=== PATIENT | male | born 1970 | race Caucasian/White ===

== ENCOUNTER 2017-11-05 06:29 | Day surgery (SDC) | payer BC ==
[2017-11-05] MEDS ORDERED: GLYCOPYRROLATE 0.4 MG INJ (07:00)
[2017-11-05] MEDS ORDERED: NEOSTIGMINE 3 MG/3 ML SYRINGE (07:00)
[2017-11-05] MEDS ORDERED: ROCURONIUM 50 MG INJ ×2 (07:00→07:41)
[2017-11-05] MEDS ORDERED: PROPOFOL 100 ML (07:37)
[2017-11-05] MEDS ORDERED: LIDOCAINE 2% (SDV) 5 ML INJ (07:41)
[2017-11-05] MEDS ORDERED: LABETALOL HCL 20MG INJ (07:51)
[2017-11-05] MEDS ORDERED: DEXAMETHASONE 4 MG/ML 1 ML INJ (07:52)
[2017-11-05] MEDS ORDERED: ONDANSETRON 4 MG INJ (07:52)
[2017-11-05] MEDS ORDERED: hydrALAzine 20 MG INJ IV (08:00)
[2017-11-05] MEDS ORDERED: LABETALOL HCL 20MG INJ IV (08:00)
[2017-11-05] MEDS ORDERED: FENTAnyl 50 MCG/ML VIAL IV ×2 (08:00)
[2017-11-05] MEDS ORDERED: ALBUTEROL 0.083% (NEB) 2.5 MG/3 ML AMP HHN (08:00)
[2017-11-05] MEDS ORDERED: EPHEDrine SULFATE 50 MG/5 ML SYG IV (08:00)
[2017-11-05] MEDS ORDERED: MIDAZOLAM 1 MG/ML 2 ML INJ IV (08:00)
[2017-11-05] MEDS ORDERED: DIPHENHYDRAMINE 50 MG INJ IV (08:00)
[2017-11-05] MEDS ORDERED: ONDANSETRON 4 MG INJ IV (08:00)
[2017-11-05] MEDS ORDERED: METOCLOPRAMIDE 10 MG INJ IV (08:00)
[2017-11-05] MEDS ORDERED: HYDROmorphONE (0.2 MG/ML) 10ML SYG IV ×3 (08:00)
[2017-11-05] MEDS ORDERED: KETOROLAC 30 MG INJ IV (08:00)
[2017-11-05] MEDS ORDERED: MEPERIDINE 25 MG INJ IV (08:00)
[2017-11-05] MEDS ORDERED: OXYCODONE/ACETAMINOPHEN (5/325) TAB PO (08:00)
[2017-11-05] MEDS: LIDOCAINE 1%/EPI 30 ML INJ (08:20)
[2017-11-05] MEDS: OXYMETAZOLINE 0.05% 15 ML NAS SPRAY NASAL (08:21)
[2017-11-05] MEDS: FENTAnyl 50 MCG/ML VIAL IV ×2 (09:42→09:48)
[2017-11-05] MEDS: OXYCODONE/ACETAMINOPHEN (5/325) TAB PO (10:46)
== END 2017-11-05 11:00 | disposition home or self-care (01) ==
LOC: SDS 06:29
DX: J34.2 Deviated nasal septum (principal); J34.3 Hypertrophy of nasal turbinates; J34.89 Other specified disorders of nose and nasal sinuses; E78.5 Hyperlipidemia, unspecified; I10 Essential (primary) hypertension; E66.01 Morbid (severe) obesity due to excess calories; Z68.31 Body mass index [BMI] 31.0-31.9, adult
CPT/HCPCS: 30520; 88300